=== PATIENT | male | born 1970 | race Caucasian/White ===

== ENCOUNTER 2022-04-18 16:34 | Outpatient (CLI) | payer OTHER, SELFPAY ==
[2022-04-18 15:15] LABS: Albumin* 4.6 g/dL (3.3-5.0)
[2022-04-18 15:16] LABS: Chloride* 99 mmol/L (96-114); Potassium* 4.1 mmol/L (3.6-5.1); Sodium* 138 mmol/L (135-149)
[2022-04-18 15:18] LABS: Alkaline Phosphatase* 71 U/L (40-150); Aspartate Amino Transferase* 23 U/L (12-35); Bilirubin Total* 0.5 mg/dL (0.1-1.5); Blood Urea Nitrogen* 19 mg/dL (7-30); Carbon Dioxide* 28 mmol/L (20-32); Cholesterol* 199 mg/dL (90-199); Creatinine* 1.1 mg/dL (0.5-1.5); Estimated Glomerular Filt Rate 80 ml/min; Total Protein* 7.2 g/dL (6.0-8.3)
[2022-04-18 15:19] LABS: Alanine Aminotransferase* 26 U/L (4-50); Calcium* 9.6 mg/dL (8.4-10.6); Glucose* 117 mg/dL (60-115); Triglycerides* 202 mg/dL (40-149)
[2022-04-18 15:20] LABS: HDL Cholesterol* 53 mg/dL (>=40); LDL Cholesterol Calculated 106 mg/dL (<100)
[2022-04-18 15:51] LABS: PSA Screen* 0.34 ng/mL (0.10-4.00)
== END 2022-04-18 16:35 | disposition home or self-care (01) ==
PROVIDERS: PCP Family Medicine; Visit Provider Physician Assistant Medical
DX: Z00.00 Encounter for general adult medical examination without abnormal findings (principal); E78.5 Hyperlipidemia, unspecified; I10 Essential (primary) hypertension; R31.9 Hematuria, unspecified; Z12.5 Encounter for screening for malignant neoplasm of prostate
CPT/HCPCS: 80053; 80061; 84153

== ENCOUNTER 2022-09-24 07:47 | Outpatient (CLI) | payer OTHER, SELFPAY | END 2022-09-24 07:48 | disposition home or self-care (01) | LOC: NFLDREF 22:26 | PROVIDERS: PCP Physician Assistant Medical; Referring Provider Physician Assistant Medical; Visit Provider Physician Assistant Medical | DX: I10 Essential (primary) hypertension (principal); N52.9 Male erectile dysfunction, unspecified | CPT/HCPCS: 80048; 84403 ==

== ENCOUNTER 2023-03-11 07:44 | Outpatient (CLI) | payer OTHER, SELFPAY | END 2023-03-11 07:45 | disposition home or self-care (01) | LOC: NFLDREF 03-12 00:29 | PROVIDERS: PCP Physician Assistant Medical; Referring Provider Physician Assistant Medical; Visit Provider Physician Assistant Medical | DX: E78.2 Mixed hyperlipidemia (principal); I10 Essential (primary) hypertension; R73.03 Prediabetes; N52.9 Male erectile dysfunction, unspecified; R79.89 Other specified abnormal findings of blood chemistry; Z12.5 Encounter for screening for malignant neoplasm of prostate | CPT/HCPCS: 80053; 80061; 84153; 84403 ==

== ENCOUNTER 2024-05-19 07:33 | Outpatient (CLI) | payer OTHER, SELFPAY | END 2024-05-19 07:34 | disposition home or self-care (01) | LOC: NFLDREF 05-22 17:40 | PROVIDERS: PCP Physician Assistant Medical; Referring Provider Physician Assistant Medical; Visit Provider Physician Assistant Medical | DX: Z00.00 Encounter for general adult medical examination without abnormal findings (principal); E78.5 Hyperlipidemia, unspecified; I10 Essential (primary) hypertension; R79.89 Other specified abnormal findings of blood chemistry; R73.03 Prediabetes; E03.8 Other specified hypothyroidism | CPT/HCPCS: 80053; 80061; 84403; 84439; 84443; G0103 ==

== ENCOUNTER 2024-07-08 09:34 | Outpatient (CLI) | payer OTHER, SELFPAY ==
--- NOTE | 2024-07-08 10:57 | P.ANES_ITS ---
Anesthesia Charges Start Date/Time Anesthesia Start Date: 07/08/24 Anesthesia Start Time: 10:30 Stop Date/Time Anesthesia Stop Date: 07/08/24 Anesthesia Stop Time: 10:55 Coding CPT Codes CPT Codes: ROHIT TRINIDAD INTST NDSC NOS - [id number] ([id number]) P2 - PATIENT W/MILD SYST DISEASE, QX - ASSISTANT PROFESSOR OF MATHEMATICS SVC W/ MD MED DIRECTION, QK - EXERCISER HORSE 2-4 CNCRNT ANEDonnell PROC
--- NOTE | 2024-07-08 10:57 | W.ANESCHARGE ---
Anesthesia Charges Start Date/Time Anesthesia Start Date: 07/08/24 Anesthesia Start Time: 10:30 Stop Date/Time Anesthesia Stop Date: 07/08/24 Anesthesia Stop Time: 10:55 Coding CPT Codes CPT Codes: ROHIT TRINIDAD INTST NDSC NOS - [id number] ([id number]) P2 - PATIENT W/MILD SYST DISEASE, QX - AIRCRAFT TIME CLERK SVC W/ MD MED DIRECTION, QK - EDUCATIONAL TECHNOLOGY SPECIALIST 2-4 CNCRNT ANEDonnell PROC
--- NOTE | 2024-07-08 12:21 | P.ANES_ITS ---
Anesthesia Charges Start Date/Time Anesthesia Start Date: 07/08/24 Anesthesia Start Time: 10:30 Stop Date/Time Anesthesia Stop Date: 07/08/24 Anesthesia Stop Time: 10:55 Coding CPT Codes CPT Codes: ROHIT LWR INTST NDSC NOS - [id number] ([id number]) QK - PANEL WIRER 2-4 CNCRNT ROHIT PROC, QX - PICC NURSE SVC W/ MD MED DIRECTION, P2 - PATIENT W/MILD SYST DISEASE
--- NOTE | 2024-07-08 12:21 | W.ANESCHARGE ---
Anesthesia Charges Start Date/Time Anesthesia Start Date: 07/08/24 Anesthesia Start Time: 10:30 Stop Date/Time Anesthesia Stop Date: 07/08/24 Anesthesia Stop Time: 10:55 Coding CPT Codes CPT Codes: ROHIT LWR INTST NDSC NOS - [id number] ([id number]) QK - TESTING CONSULTANT 2-4 CNCRNT ROHIT PROC, QX - JAVA LEAD DEVELOPER SVC W/ MD MED DIRECTION, P2 - PATIENT W/MILD SYST DISEASE
== END 2024-07-08 09:35 | disposition home or self-care (01) ==
LOC: OP CLINIC 09:35
PROVIDERS: PCP Physician Assistant Medical; Visit Provider Surgery
DX: Z12.11 Encounter for screening for malignant neoplasm of colon (principal); D12.0 Benign neoplasm of cecum; K57.30 Diverticulosis of large intestine without perforation or abscess without bleeding
CPT/HCPCS: 00811; 45385; 88305; J2704

== ENCOUNTER 2024-08-23 07:46 | Outpatient (CLI) | payer OTHER, SELFPAY | END 2024-08-23 07:47 | disposition home or self-care (01) | LOC: NFLDREF 08-25 05:08 | PROVIDERS: PCP Physician Assistant Medical; Referring Provider Physician Assistant Medical; Visit Provider Physician Assistant Medical | DX: R53.83 Other fatigue (principal); E03.8 Other specified hypothyroidism; R73.03 Prediabetes | CPT/HCPCS: 82306; 82607; 82728; 84439; 84443 ==

== ENCOUNTER 2025-06-02 07:50 | Outpatient (CLI) | payer OTHER, SELFPAY | END 2025-06-02 07:51 | disposition home or self-care (01) | LOC: NFLDREF 06-06 20:43 | PROVIDERS: PCP Physician Assistant Medical; Referring Provider Physician Assistant Medical; Visit Provider Physician Assistant Medical | DX: Z00.00 Encounter for general adult medical examination without abnormal findings (principal); E55.9 Vitamin D deficiency, unspecified; E03.8 Other specified hypothyroidism; E78.2 Mixed hyperlipidemia; R73.03 Prediabetes | CPT/HCPCS: 80053; 80061; 82306; 84403; 84439; 84443; G0103 ==